=== PATIENT | female | born 1970 | race Caucasian/White ===

== ENCOUNTER 2017-05-07 13:08 | Emergency (ER) | payer MEDICAID ==
[~2017-05-07] VITALS: Ht 172.7 cm; Wt 84.0 kg
[~2017-05-07 13:08] MED LIST: DILAUDID8 MG PO; FLEXERIL5 MG PO; SILVADENE1 % EX
[2017-05-07 13:13] VITALS: BP 145/77
== END 2017-05-07 13:39 | disposition left against medical advice (07) | DRG 392 ==
LOC: ED 13:08
DX: R10.13 Epigastric pain (principal); G89.29 Other chronic pain; M54.9 Dorsalgia, unspecified; M25.519 Pain in unspecified shoulder; R07.9 Chest pain, unspecified; Z91.19 Patient's noncompliance with other medical treatment and regimen

== ENCOUNTER 2017-10-06 12:47 | Emergency (ER) | payer MEDICAID ==
[~2017-10-06] VITALS: Ht 172.7 cm; Wt 72.8 kg
[2017-10-06 13:41] LABS: URINE BILIRUBIN - DIPSTICK NEGATIVE (NEGATIVE); URINE BLOOD DIPSTICK TRACE-INTACT (NEGATIVE); URINE COLOR YELLOW; URINE GLUCOSE - DIPSTICK NEGATIVE (NEGATIVE); URINE KETONE TRACE mg/dL (NEGATIVE); URINE LEUK ESTERASE NEGATIVE (NEGATIVE); URINE NITRITE - DIPSTICK NEGATIVE (Negative); URINE PH 5.5 (4.5-8.0); URINE PROTEIN - DIPSTICK NEGATIVE (NEG-TRACE); URINE SPECIFIC GRAVITY >=1.030; URINE UROBILINOGEN - DIPSTICK 0.2 E.U./dL (0.2)
[2017-10-06 13:45] LABS: URINE CLARITY CLEAR
[2017-10-06 13:52] LABS: ALBUMIN 4.5 g/dL (3.2-5.0); ALKALINE PHOSPHATASE 50 u/l (38-126); ANION GAP 20 (6-22 (CALC)); BILIRUBIN, TOTAL 0.4 mg/dL (0.0-1.4); BUN 9 mg/dL (7-17); BUN/CREATININE RATIO 12 (12-20 (CALC)); CARBON DIOXIDE 21 mmol/l (22-30); CHLORIDE 107 mmol/l (95-108); CREATININE 0.8 mg/dL (0.5-1.0); GFR > 60 ML/MIN (>=60 (CALC)); GFR FOR AFR.AMER. > 60 ML/MIN (>=60 (CALC)); POTASSIUM 4.3 mmol/l (3.5-5.1); SGOT/AST 18 u/l (14-36); SGPT/ALT 23 u/l (9-52); SODIUM 143 mmol/l (137-146); TOTAL PROTEIN 7.7 g/dL (6.3-8.2)
[2017-10-06 13:54] LABS: BASO% 0 % (0-3); EOS% 2 % (0-8); IMMATURE GRANULOCYTES 0.3 % (0.0-1.0); LYMPH% 20 % (15-41); MEAN CORPUSCULAR HGB 19.2 pG CALC (26.0-32.0); MEAN CORPUSCULAR HGB CONC 27.7 g/L CALC (32.0-36.0); MONO% 5 % (2-13); NEUT# 4.84 thou/uL (2.00-7.15); NEUT% 72 % (42-76); RED BLOOD COUNT 2.81 mill/uL (4.20-5.60); RED CELL DISTRI WIDTH 17.8 % (11.5-15.5)
[2017-10-06 13:56] LABS: INTERNATIONAL NORMALIZED RATIO 0.9 RATIO (0.7-1.3); PROTHROMBIN TIME 10.4 SECONDS (9.0-12.5)
[2017-10-06 13:57] LABS: HEMOGLOBIN 5.4 g/dl (12.0-16.0); MEAN CELL VOLUME 69.4 fL CALC (80.0-100.0); PLATELET COUNT 306 thou/uL (130-400)
[2017-10-06 13:58] LABS: HEMATOCRIT 19.5 % (37.0-47.0)
[2017-10-06 13:59] LABS: MANUAL DIFFERENTIAL YES
[2017-10-06 14:04] LABS: MYOGLOBIN 12 ng/mL (0 - 62)
[2017-10-06 14:15] LABS: BAND 6 % (0-8)
[2017-10-06 14:16] LABS: ANISOCYTOSIS MODERATE; HYPOCHROMIA MARKED; MICROCYTOSIS MODERATE
[2017-10-06 14:32] VITALS: BP 162/72
[2017-10-06 14:46] VITALS: BP 116/59
[2017-10-06 15:33] VITALS: BP 100/58
[2017-10-06 15:41] VITALS: BP 109/70
[2017-10-06 15:50] VITALS: BP 138/89
[2017-10-06 15:52] VITALS: BP 138/89
== END 2017-10-06 15:52 | disposition short-term general hospital (02) | DRG 760 ==
LOC: ED 12:47
PROVIDERS: Family Medicine
PROC: 30233N1 Transfusion of Nonautologous Red Blood Cells into Peripheral Vein, Percutaneous Approach (ICD-10-PCS; principal; 2017-10-06)
DX: N92.0 Excessive and frequent menstruation with regular cycle (principal); D62 Acute posthemorrhagic anemia
CPT/HCPCS: P9016

== ENCOUNTER 2018-06-25 14:37 | Emergency (ER) | payer MEDICAID ==
[~2018-06-25] VITALS: Ht 172.7 cm; Wt 76.4 kg
[2018-06-25] MEDS ORDERED: ZANAFLEX4 M2 PO (14:48)
[2018-06-25] MEDS ORDERED: BLISOVI FE 1.5/1 TAB PO (15:15)
[2018-06-25 15:34] VITALS: BP 116/80
== END 2018-06-25 15:38 | disposition home or self-care (01) ==
LOC: ED 14:37
DX: S39.012A Strain of muscle, fascia and tendon of lower back, initial encounter (principal); M47.817 Spondylosis without myelopathy or radiculopathy, lumbosacral region; M54.5 Low back pain; W10.9XXA Fall (on) (from) unspecified stairs and steps, initial encounter; Y93.01 Activity, walking, marching and hiking; Y92.009 Unspecified place in unspecified non-institutional (private) residence as the place of occurrence of the external cause

== ENCOUNTER 2018-08-27 14:37 | Emergency (ER) | payer MEDICAID ==
[~2018-08-27] VITALS: Ht 172.7 cm; Wt 76.4 kg
[~2018-08-27 14:37] MED LIST changes: +BLISOVI FE 1.5/1 TAB PO; +ZANAFLEX4 M2 PO
[2018-08-27] MEDS ORDERED: IBUPROFEN600 MG PO (14:52)
[2018-08-27 14:55] VITALS: BP 132/84
== END 2018-08-27 14:55 | disposition left against medical advice (07) ==
LOC: ED 14:37 → LWOBS 14:55 → ED 14:55
DX: Z91.19 Patient's noncompliance with other medical treatment and regimen (principal)

== ENCOUNTER 2019-03-18 13:45 | Emergency (ER) | payer MEDICAID ==
[~2019-03-18] VITALS: Ht 172.7 cm; Wt 80.6 kg
[~2019-03-18 13:45] MED LIST changes: +IBUPROFEN600 MG PO
[2019-03-18] MEDS ORDERED: HYDROMORPHON8 MG PO (14:14)
[2019-03-18] MEDS ORDERED: BANOPHEN50 MG PO (14:14)
[2019-03-18] MEDS ORDERED: PREDNISONE10 MG PO (14:15)
[2019-03-18 14:20] VITALS: BP 142/80
== END 2019-03-18 14:20 | disposition home or self-care (01) ==
LOC: ED 13:45
DX: L25.9 Unspecified contact dermatitis, unspecified cause (principal); S70.362A Insect bite (nonvenomous), left thigh, initial encounter; W57.XXXA Bitten or stung by nonvenomous insect and other nonvenomous arthropods, initial encounter

== ENCOUNTER 2019-03-28 15:32 | Emergency (ER) | payer MEDICAID ==
[~2019-03-28] VITALS: Ht 172.7 cm; Wt 90.0 kg
[~2019-03-28 15:32] MED LIST changes: +BANOPHEN50 MG PO; +HYDROMORPHON8 MG PO; +PREDNISONE10 MG PO
[2019-03-28] MEDS ORDERED: MEDDOSEPAK PO (16:51)
[2019-03-28 17:20] VITALS: BP 126/76
== END 2019-03-28 17:20 | disposition home or self-care (01) ==
LOC: ED 15:32
DX: L50.0 Allergic urticaria (principal)

== ENCOUNTER 2020-01-02 08:06 | Emergency (ER) | payer MEDICAID ==
[~2020-01-02] VITALS: Ht 172.7 cm; Wt 86.0 kg
[~2020-01-02 08:06] MED LIST changes: +MEDDOSEPAK PO
[2020-01-02] MEDS ORDERED: PENICILLN VK500 M1 PO (08:32)
[2020-01-02 09:07] VITALS: BP 105/70
== END 2020-01-02 09:00 | disposition home or self-care (01) ==
LOC: ED 08:06
DX: J02.0 Streptococcal pharyngitis (principal)

== ENCOUNTER 2022-06-20 23:28 | Emergency (ER) | payer MEDICAID ==
[~2022-06-20] VITALS: Ht 172.7 cm; Wt 63.0 kg
[~2022-06-20 23:28] MED LIST changes: +PENICILLN VK500 M1 PO
[2022-06-21 00:58] VITALS: BP 164/89
== END 2022-06-21 01:06 | disposition home or self-care (01) ==
LOC: ED 23:28
DX: B34.9 Viral infection, unspecified (principal); M54.9 Dorsalgia, unspecified; G89.29 Other chronic pain; Z20.822 Contact with and (suspected) exposure to COVID-19